=== PATIENT | male | born 1945 | race Hispanic/Latino ===

== ENCOUNTER → 2020-05-04 | Outpatient (CLI) | payer MEDICARE | END | disposition home or self-care (01) | LOC: RAH 10:00 | PROVIDERS: ATTEND Physician Assistant | DX: R59.0 Localized enlarged lymph nodes (principal) | CPT/HCPCS: 76536 ==

== ENCOUNTER 2023-05-20 09:24 | Emergency (ER) | payer MEDICARE ==
[~2023-05-20] VITALS: Ht 165.1 cm; Wt 79.8 kg
[2023-05-20] MEDS ORDERED: KETOROLAC 15MG/ML VIAL (15MG/ML) IM ONE (10:00)
[2023-05-20] MEDS ORDERED: IBUP-2070 PO (11:56)
[2023-05-20 12:46] VITALS: BP 145/86; PULSE 84; RESP 18; O2SAT 98
== END 2023-05-20 12:47 | disposition home or self-care (01) ==
LOC: EDH 09:24
DX: M54.50 Low back pain, unspecified (principal); G89.29 Other chronic pain; M25.551 Pain in right hip; F41.9 Anxiety disorder, unspecified; E78.00 Pure hypercholesterolemia, unspecified; I10 Essential (primary) hypertension
CPT/HCPCS: 99285; 72131; 72192; 96372; J1885